=== PATIENT | male | born 1975 | race Two or more races ===

== ENCOUNTER 2024-11-04 06:34 | Emergency (ER) | payer MEDICAID, SELFPAY ==
[2024-11-04 06:46] VITALS: BP 172/93; PULSE 87; RESP 16; TEMP 36.7; O2SAT 96
--- NOTE | 2024-11-04 07:03 | PD.EDRME ---
Rapid Medical Screening Exam RME Arrival date/time: 11/04/24 06:34 Chief Complaint: Abdominal Pain Time Seen by Provider: 11/04/24 08:27 Vital signs: Vital Signs Temperature 98.0 F 11/04/24 06:46 Pulse Rate 87 11/04/24 06:46 Respiratory Rate 16 11/04/24 06:46 Blood Pressure 172/93 H 11/04/24 06:46 Pulse Oximetry (%) 96 11/04/24 06:46 Oxygen Delivery Method Room Air 11/04/24 06:46 Pulse ox room air is 96% Vital signs reviewed by provider: Yes RME Narrative: Complains of abdominal pain that began 3 days ago to the right lower quadrant. Patient is describing the pain as like burning. Denies nausea, vomiting, diarrhea. Denies fever last BM was this morning.
--- NOTE | 2024-11-04 07:05 | XR_ITS ---
Examination: CT abdomen with intravenous contrast CT pelvis with intravenous contrast 2-D coronal reconstructions 2-D sagittal reconstructions Date and time of exam:November 04, 2024 1003 hours INDICATIONS: Right lower abdominal pain beginning 3 days ago. CTDI: vol (mGy) 10.5 DLP: (mGycm) 720 Technique: Multiple axial sections of the abdomen and pelvis have been obtained. 64 slice high-resolution scanner used. 3 mm axial sections have been obtained, post intravenous injection 60 cc [id number] 2-D sagittal, coronal reconstructions obtained. Low dose protocols were performed. One or more of the following dose reduction techniques were used; automated exposure control, adjustment of the mA and/or KV according to patient size, use of iterative reconstruction technique. Findings: 3 mm pulmonary nodule right lower lobe image 49 No focal liver or splenic lesions No gallstones No pancreatic mass. 14 mm left adrenal adenoma No renal or ureteral calculi, no hydronephrosis Aorta normal size Normal appendix axial image 181 No bowel obstruction No diverticulitis Urinary bladder intact No prostatomegaly Fat-containing umbilical hernia IMPRESSION: 3 mm pulmonary nodule right lower lobe, suggest follow-up 14 mm benign left adrenal adenoma No renal or ureteral calculi, no hydronephrosis Normal appendix
[2024-11-04 07:48] LABS: Collection Type, Urine Clean Catch; Squamous Epithelial Cell,Urine 0 /hpf (0-5)
[2024-11-04 08:12] LABS: Basophils # (Auto) 0.1 Thou/mm3 (0.0-0.2); Basophils % (Auto) 0 % (0-2.5); Eosinophils # (Auto) 0.1 Thou/mm3 (0.0-0.5); Eosinophils % (Auto) 1 % (0-10); Hematocrit 42.3 % (41.0-53.0); Hemoglobin 15.0 g/dL (13.5-16.0); Immature Granulocytes Auto 0.04 Thou/mm3 (0.00-0.00); Lymphocytes # (Auto) 3.4 Thou/mm3 (1.0-4.8); Lymphocytes % (Auto) 30 % (10-50); Mean Corpuscular HGB Conc 35.5 g/dl (31.0-37.0); Mean Corpuscular Hemoglobin 30.6 pg (25.0-35.0); Mean Corpuscular Volume 86 fL (80-100); Monocytes # (Auto) 0.5 Thou/mm3 (0.0-0.8); Monocytes % (Auto) 5 % (0-12); Neutrophils # (Auto) 7.1 Thou/mm3 (1.8-7.7); Neutrophils % (Auto) 64 % (37-80); Nucleated Red Blood Cell # 0.00 Thou/mm3 (0.00-0.00); Nucleated Red Blood Cell % 0 /100 WBC (0); Platelet Count 284 Thou/mm3 (140-440); RDW Standard Deviation 39.7 fL (35.1-43.9); Red Blood Count 4.90 Miln/mm3 (4.50-5.90); White Blood Count 11.2 Thou/mm3 (3.8-10.6)
[2024-11-04 08:21] LABS: Alanine Aminotransferase 16 U/L (10-49); Albumin, Serum 4.2 gm/dL (3.5-5.0); Albumin/Globulin Ratio 1.6 (1.2-2.2); Alkaline Phosphatase 111 U/L (46-116); Anion Gap 10 (7-16); Aspartate Amino Transferase 11 U/L (0-34); BUN/Creatinine Ratio 13 Ratio (12-20); Bilirubin,Total 0.5 mg/dL (0.3-1.2); Blood Urea Nitrogen 13 mg/dL (9-23); Calcium 9.0 mg/dL (8.3-10.6); Calcium (Corrected) 9.0 mg/dL (8.5-10.1); Carbon Dioxide 25.8 mMol/L (20.0-31.0); Chloride 104 mMol/L (98-107); Creatinine (Component) 1.0 mg/dL (0.6-1.3); Globulin 2.6 gm/dL (2.3-3.5); Glucose 316 mg/dL (74-106); Lipase 35 U/L (12-53); Osmolality,Calculated 291 (275-295); Potassium 3.9 mMol/L (3.4-5.1); Sodium 140 mMol/L (136-145); Total Protein 6.8 gm/dL (5.7-8.2); eGFR > 60 See Note
--- NOTE | 2024-11-04 08:28 | PD.EDADULT ---
ED General RME/HPI General Chief complaint: Abdominal Pain Stated complaint: RIGHT LOWER ABD PAIN X 3 DAYS Time Seen by Provider: 11/04/24 08:27 Arrival date/time: 11/04/24 06:34 RME / HPI RME / HPI narrative: Complains of abdominal pain that began 3 days ago to the right lower quadrant. Patient is describing the pain as like burning. Denies nausea, vomiting, diarrhea. Denies fever last BM was this morning. Related Data Allergies Allergy/AdvReac Type Severity Reaction Status Date / Time No Known Allergies Allergy Verified 11/04/24 06:36 Review of Systems Review of Systems Systems Reviewed: All systems reviewed, normal except as documented ED Exam Narrative Physical exam: Physical Exam GENERAL: NAD, AAOx3 HEENT: Moist mucosa. Eyes open, symmetrical, & clear CARDIO: Heart RRR, no obvious murmurs PULM: No noted coughing/dyspnea CTA B/L, no R/W/R GI: Abdomen soft, nondistended, RLQ pain on palpation. BSx4 SKIN/MSK/EXT: No wounds/rashes/edema/amputations, no pain on palpation. Pedal pulses present B/L NEURO: AAOx3, no focal neuro deficits, able to move all 4 extremities Course Course Course Narrative: see MDM Quality Measures none Orders Category Date Time Status CT Screening NOW Care 11/04/24 07:05 Active Insert IV NOW Care 11/04/24 08:[address] abdomen pelvis w con Stat Exams 11/04/24 07:05 Completed CBC Stat Lab 11/04/24 07:34 Completed Comprehensive Metabolic Panel Stat Lab 11/04/24 07:34 Completed Lactic Acid [Lactate (Lactic Acid)] Stat Lab 11/04/24 09:17 Completed Lipase Stat Lab 11/04/24 07:34 Completed Urinalysis Stat Lab 11/04/24 07:42 Completed HYDROcodone/APAP 10/325 [Dixie 10/325] Med 11/04/24 07:30 Discontinued 1 tab PO X1 ONE Morphine Inj Med 11/04/24 08:44 Discontinued 2 mg IVP X1 ONE Ringers Lactated 1000 ml [Lactated Ringers] 1,000 ml Med 11/04/24 09:29 Discontinued IV 999 mls/hr Vital Signs Vital signs: Vital Signs Temperature 98.0 F 11/04/24 06:46 Pulse Rate 87 11/04/24 06:46 Respiratory Rate 16 11/04/24 06:46 Blood Pressure 172/93 H 11/04/24 06:46 Pulse Oximetry (%) 96 11/04/24 06:46 Oxygen Delivery Method Room Air 11/04/24 06:46 Discharge Plan Plan Patient Disposition: HOME (Self Care) Prescriptions/Referrals Referrals: No Primary/Family,Physician [Primary Care Provider] - In 1 week Problem List Clinical Impression: Muscle spasm Patient/Caregiver Discharge Instructions Additional Instructions: Patient can be safely discharged with strict return precautions. All your work up today in the ER shows no acute intraabdominal pathology. Patient can be safely discharged with strict return precautions. Should any symptoms recur or worsen patient is instructed to return to the ED. Print Language: Niuean Stand Alone Forms: [facility] Award Info., Patient Portal Info Letter MDM Narrative MDM hospital course: 49 y/o M with PMHx of Diabetes who presented to the ED due to abdominal pain. Patient states that he started having this pain around 3 days ago in the right lower quadrant abdominal described as burning in character. He rates the pain as 10/10 in the RLQ and he reports it radiating to this midabdomen. He denies fever, chills, shortness of breath, chest pain, sick contacts, recent travel, previous surgeries. 0845: UA shows glucosuria, CMP unremarkable, CBC shows leukocytosis, CT abdomen pending at this time, ordered 2mg of Morphine IV x1 1052: CT negative, on exam symptoms have resolved. Patient can be safely discharged with strict return precautions. Should any symptoms recur or worsen patient is instructed to return to the ED. Clinical Information Provided by patient Medical Records Reviewed [facility] Chronic Illness/Social Conditions which may negatively complicate care or outcome(s)-explain: None or not applicable Medication Administration(s) Medication Administration History Discontinued Medications Hydrocodone Bitart/Acetaminophen (Hydrocodone/Apap 10/325 Tab) 1 tab PO X1 ONE Stop: 11/04/24 07:31 Last Admin: 11/04/24 09:04 Dose: Not Given Documented By: DIONI Non-Admin Reason: Cancelled by Provider Lactated Ringer's (Lactated Ringers) 1,000 mls @ 999 mls/hr IV .Q1H1M ONE Stop: 11/04/24 10:29 Morphine Sulfate (Morphine Sulf Inj 10 Mg/Ml Vial) 2 mg IVP X1 ONE Stop: 11/04/24 08:45 Last Admin: 11/04/24 09:20 Dose: 2 mg Documented By: DIONI
[2024-11-04 08:40] LABS: Bilirubin,Urine Negative (Negative); Blood,Urine Negative (Negative); Clarity,Urine Clear (Clear/Hazy); Color,Urine Lt-Yellow (Lt Yel-Yel); Glucose, Urine 4+ (Negative); Ketones,Urine Negative (Negative); Leukocyte Esterase,Urine Negative (Negative); Nitrite,Urine Negative (Negative); PH,Urine 6.0 (5.0-7.0); Protein,Urine Trace (Neg - Trace); RBC,Urine 2 /hpf (0-3); Specific Gravity,Urine 1.041 (1.001-1.035); Urobilinogen,Urine Negative mg/dL (0.0-1.0); WBC,Urine 1 /hpf (0-5)
[2024-11-04] MEDS: MORPHINE SULF INJ 10 MG/ML VIAL 2 MG IVP (09:20)
[2024-11-04 09:27] VITALS: BP 148/85; PULSE 78; RESP 16; TEMP 36.8; O2SAT 93
[2024-11-04 09:33] LABS: Lactate (Lactic Acid) 1.8 mMol/L (0.4-2.0)
[2024-11-04 11:15] VITALS: BP 146/99; PULSE 73; RESP 18; TEMP 37.1; O2SAT 97
== END 2024-11-04 11:55 | disposition home or self-care (01) ==
PROVIDERS: Physician Assistant; Emergency Provider Student in an Organized Health Care Education/Training Program
DX: M62.838 Other muscle spasm (principal); R91.1 Solitary pulmonary nodule; D35.02 Benign neoplasm of left adrenal gland
CPT/HCPCS: 36415; 74177; 80053; 81001; 83605; 83690; 85025; 96374; 99283; A4649; J2270; Q9967